=== PATIENT | female | born 1935 | race Caucasian/White ===

== ENCOUNTER → 2018-12-14 19:30 | Outpatient (REF) | payer MEDICARE, BC, SELFPAY | LOC: LAB 19:30 | PROVIDERS: Family Provider Family Medicine Geriatric Medicine; PCP Family Medicine Geriatric Medicine; Visit Provider Family Medicine Geriatric Medicine | DX: N39.0 Urinary tract infection, site not specified (principal) | CPT/HCPCS: 87086 ==